=== PATIENT | female | born 1970 | race Caucasian/White ===

== ENCOUNTER 2018-08-26 16:49 | Emergency (ER) | payer MEDICAID ==
[~2018-08-26] VITALS: Ht 154.9 cm; Wt 65.3 kg
[2018-08-26 17:02] VITALS: Ht 154.9 cm; Wt 65.3 kg
[2018-08-26 18:04] LABS: BASOPHIL % 0.1 % (0-2); PLATELET COUNT 227 x10^3mcL (130-400); RED CELL DISTRIBUTION WIDTH 12.7 % (11.5-14.5)
[2018-08-26 18:15] LABS: CALCIUM 9.3 mg/dL (8.5-10.1); CARBON DIOXIDE 20.7 mmol/L (21-32); CHLORIDE SERUM 100 mmol/L (98-107); CREATININE SERUM 0.9 mg/dL (0.6-1.0); GFR1 > 60 mL/min; GLUCOSE SERUM 115 mg/dL (74-106); POTASSIUM SERUM 3.8 mmol/L (3.5-5.1); SODIUM SERUM 133 mmol/L (136-145)
[2018-08-26 18:20] LABS: ALBUMIN 3.9 g/dL (3.4-5.0); ALKALINE PHOSPHATASE 83 U/L (46-116); ALT/SGPT 44 U/L (14-59); AST/SGOT 17 U/L (15-37); BILIRUBIN TOTAL 0.6 mg/dL (0.20-1.00); LIPASE 153 IU/L (73-393)
[2018-08-26 18:23] LABS: TOTAL PROTEIN, SERUM 8.9 g/dL (6.4-8.2)
[2018-08-26 21:55] VITALS: BP 101/66
== END 2018-08-26 21:53 | disposition home or self-care (01) ==
LOC: ED 16:49
PROVIDERS: Emergency Medicine
DX: E86.0 Dehydration (principal); R51 Headache; R19.7 Diarrhea, unspecified; R11.10 Vomiting, unspecified; R10.9 Unspecified abdominal pain; Z91.010 Allergy to peanuts; Z91.09 Other allergy status, other than to drugs and biological substances; Z98.890 Other specified postprocedural states
CPT/HCPCS: 87046; 87046-59; J1885; J2405; J7030

== ENCOUNTER 2019-05-15 17:07 | Emergency (ER) | payer MEDICAID ==
[~2019-05-15] VITALS: Ht 157.5 cm; Wt 64.0 kg
[2019-05-15 17:37] VITALS: Ht 157.5 cm; Wt 64.0 kg
[2019-05-15 20:08] VITALS: BP 122/79
== END 2019-05-15 20:08 | disposition home or self-care (01) ==
LOC: ED 17:07
DX: L30.9 Dermatitis, unspecified (principal); Z91.048 Other nonmedicinal substance allergy status; Z91.010 Allergy to peanuts
CPT/HCPCS: J7512